=== PATIENT | female | born 1965 | race Caucasian/White ===

== ENCOUNTER → 2016-09-09 | Outpatient (CLI) | payer MEDICARE, OTHER | LOC: MAMO 15:32 | DX: Z12.31 Encounter for screening mammogram for malignant neoplasm of breast (principal) | CPT/HCPCS: G0202 ==

== ENCOUNTER 2017-02-20 16:22 | Emergency (ER) | payer MEDICARE, OTHER ==
[2017-02-20 18:00] LABS: HEMOGLOBIN 12.2 gm/dl (12.3-15.3); RED BLOOD COUNT 4.1 M/UL (4.00-5.10); WHITE BLOOD COUNT 8.2 K/UL (4.5-11.0)
[2017-02-20 18:28] LABS: BUN/CREATININE RATIO 13 (0-10)
== END 2017-02-20 23:37 | disposition home or self-care (01) ==
LOC: ER1 16:22
PROVIDERS: Emergency Medicine
DX: J20.9 Acute bronchitis, unspecified (principal); J06.9 Acute upper respiratory infection, unspecified; T65.91XA Toxic effect of unspecified substance, accidental (unintentional), initial encounter; J44.9 Chronic obstructive pulmonary disease, unspecified; F17.210 Nicotine dependence, cigarettes, uncomplicated
CPT/HCPCS: 36415; 36600; 70450; 71010; 80053; 80307; 81001; 82550; 82553; 82803; 83874; 84484; 85025; 93005; 94664; 96361; 96365; 96375; 99285; J0696; J1885; J2930; J7030; J7050